=== PATIENT | male | born 1955 | race Caucasian/White ===

== ENCOUNTER 2016-07-15 12:29 | Emergency (ER) | payer OTHER ==
[2016-07-15 12:47] VITALS: BP 140/84; PULSE 59; RESP 16; TEMP 97.5; O2SAT 99
--- NOTE | 2016-07-15 13:06 | UCPHY ---
[id number] is stable and moderate. I called patient and counseled him regarding this. He agrees to follow up with primary care promptly. Original Note: H & P Patient Type: New Chief Complaint Nursing Narrative: C/o nonproductive cough since 07/02/16. States he was diagnosed with walking pneumonia and prescribed zpack-which last dose is today. Denies fever Source: Patient Exam Limitations: No limitations - Personal History Current Tetanus Diphtheria and Acellular Pertussis (TDAP): Yes Tetanus Vaccine Date: within 10 years - Medical/Surgical History Hx Asthma: No Hx Chronic Respiratory Disease: No Hx Diabetes: No Hx Cardiac Disease: No Hx Renal Disease: No Hx Cirrhosis: No Hx Alcoholism: No Hx HIV/AIDS: No Hx Splenectomy or Spleen Trauma: No Other PMH: Hernia - Family History Significant Family History: No pertinent family hx - Social History Smoking Status: Never smoked Alcohol Use: None Drug Use: None Time Seen by Provider: 07/15/16 13:06 HPI/ROS: HPI: 61-year-old gentleman presents to urgent care with chief concern cough. Was diagnosed with community-acquired pneumonia without a chest x-ray by primary care provider at [facility] and started on a Z-Javon which she finishes today. He reports an improvement in the cough but it is still ongoing with moderate fatigue. Cough is worse at night Denies fever, chills, dizziness , shortness of breath, chest pain, abdominal pain, nausea, vomiting, diarrhea, rash. No history of asthma pneumonia. No recent travel. No recent antibiotic use. Received a flu shot this year. 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 ROS:10 point review of systems is negative other than as stated in HPI (Shantell Lei) - Social History Additional Social History: [employer] professor (Shantell Lei) - Physical Exam Exam: Vital signs stable, reviewed by me General: Awake, alert, calm, cooperative. No acute distress. Head: Normalocephalic. Atraumatic. EENT: PERRLA. EOMI. No pallor or injection. Anicteric. No nystagmus. No injection. TMs intact bilaterally with normal landmarks. No rhinnorhea, nasal passages clear. Oropharynx without redness, exudates, or lesions. Tonsils 2+ bilaterally, no exudates. Neck: Supple, nontender. No lymphadenopathy. Full range of motion. No meningismus. Respiratory: Breathing unlabored. Breath sounds equal bilaterally and clear to auscultation. No adventitious sounds. CV: Chest nontender, atraumatic. Heart rate regular. No murmur, distal pulses 2+ bilaterally. Brisk cap refill all extremities. GI: Abdomen soft, nontender. Bowel sounds normoactive and positive x4 quadrants. Neuro: Alert. Oriented x 3. Speech clear. Nonfocal cranial nerves throughout. Sensation intact all extremities. Skin: Skin warm, dry, intact. No rashes, abrasions, or lacerations. Skin turgor normal. Extremities: Full range of motion in all 4 extremities. Strength 5+ all extremities. (Shantell Lei) Constitutional: Initial Vital Signs Temperature (C) 36.4 C 07/15/16 12:44 Heart Rate 59 L 07/15/16 12:44 Respiratory Rate 16 07/15/16 12:44 Blood Pressure 140/84 H 07/15/16 12:44 O2 Sat (%) 99 07/15/16 12:44 O2 Delivery Mode Room Air Allergies/Adverse Reactions: Penicillins Allergy (Intermediate, Verified 07/15/16 12:44) Hives Home Medications: Medication Instructions Recorded Albuterol Hfa Anes Only [Proair 2 puffs IH QID PRN #1 mdi 07/15/16 Hfa Anes Only] predniSONE 20 mg PO DAILY #8 tablet 07/15/16 Medical Decision Making - Diagnostics Imaging: Chest x-ray without evidence of pneumonia, final report pending at time this dictation (Shantell Lei) ED Course/Re-evaluation: Chest x-ray shows no evidence of pneumonia. Given 1st dose prednisone here. Will be given a 5 day burst of prednisone with albuterol inhaler. Have advised follow-up later this week with primary care. ( Shantell Lei) Urgent Care BUSINESS ANALYST INTERN supervision Physician documentation: The patient was evaluated and managed by the nurse practitioner. My co- signature indicates that I have reviewed this chart and I agree with the findings and plan of care as documented. I am the secondary supervising physician. (Eren Burr) Differential Diagnosis: Differential includes but is not limited to bronchitis, pneumonia, reactive airway disease, CHF, malignancy (Shantell Lei) - Data Points Medications Given: Discontinued Medications Prednisone (Prednisone) 60 mg PO EDNOW ONE Stop: 07/15/16 13:38 Last Admin: 07/15/16 13:41 Dose: 60 mg Departure - Departure Disposition: Home, Routine, Self-Care Clinical Impression: Upper respiratory infection Condition: Good Instructions: Upper Respiratory Infection (ED) Additional Instructions: Plan: Use your albuterol inhaler 2 puffs every 4-6 hours for shortness of breath, wheezing. Steroids as prescribed for the next 5 days Please follow up with primary care by the end of this week for recheck Return she developed shortness of breath or chest pain Referrals: SILVIANO JAMESON [Primary Care Provider] - As per Instructions Prescriptions: Albuterol Hfa Anes Only [Proair Hfa Anes Only] 2 puffs IH QID PRN #1 mdi PRN Reason: Short Of Breath/Dyspnea predniSONE 20 mg PO DAILY #8 tablet - PQRS PQRS Measurement: 134: Depression screening and followup, PRIME MD-PHQ2 (12 years and older) Over the last 2 weeks, how often have you been bothered by any of the following problems? 1. Feeling down, depressed, or hopeless? 2. Little interest or pleasure in doing things? Patient answered no to both 1 and 2 130: Documentation of medications. Reviewed all patient medications, doses, route and frequency. 226: Do you smoke? No 47: 65 and older: Advanced care planning. Declines 51: 18 years old and older with diagnosis of COPD, spirometry performance. Patient has no history of COPD 52: 18 years old and older with COPD and symptoms of COPD or FEV1<60% no history of COPD (Shantell Lei)
[2016-07-15] MEDS ORDERED: predniSONE 20 MG TAB PO ONE (13:37)
--- NOTE | 2016-07-15 14:57 | DX ---
PA and Lateral Chest X-ray 1307 hours History: Persistent cough and congestion. Comparison to previous study of August 16, 2009.. Findings: Heart size and pulmonary vasculature are normal. The lungs are clear without infiltrates or effusions. There is no pneumothorax. There is stable moderate anterior wedge compression fracture english perior endplate of what appears to be T8. No new compression fractures are seen. There is associated accentuation of the anterior kyphosis midthoracic spine. Impression: 1. No active cardio pulmonary disease seen. 2. Stable moderate anterior wedge compression fracture superior endplate of what appears to be T8. If indicated, consider DEXA scan at some point to evaluate underlying bone mineral density.
== END 2016-07-15 13:54 | disposition home or self-care (01) ==
LOC: CED 12:29
DX: J06.9 Acute upper respiratory infection, unspecified (principal); S22.060A Wedge compression fracture of T7-T8 vertebra, initial encounter for closed fracture
CPT/HCPCS: 71020-PO; G0463-PO